=== PATIENT | female | born 1965 | race Two or more races ===

== ENCOUNTER 2019-08-01 11:44 | Outpatient (CLI) | payer OTHER ==
[~2019-08-01 11:44] MED LIST: CRESTOR10 MG; INDAPAMIDE1.25 MG
== END 2019-08-01 11:46 | disposition home or self-care (01) ==
LOC: MAMO-SONO 11:44
PROVIDERS: ATTEND Obstetrics & Gynecology
DX: Z12.31 Encounter for screening mammogram for malignant neoplasm of breast (principal); N60.11 Diffuse cystic mastopathy of right breast; N60.12 Diffuse cystic mastopathy of left breast

== ENCOUNTER 2022-03-23 10:50 | Emergency (ER) | payer OTHER ==
[~2022-03-23] VITALS: Ht 170.2 cm; Wt 78.0 kg
[2022-03-23] MEDS ORDERED: ZITHROMAX500 MG PO (14:34)
[2022-03-23] MEDS ORDERED: KETO10TA2 PO (14:35)
== END 2022-03-23 14:47 | disposition home or self-care (01) ==
LOC: ER 10:50
DX: H92.01 Otalgia, right ear (principal); B34.9 Viral infection, unspecified; I10 Essential (primary) hypertension; Z20.822 Contact with and (suspected) exposure to COVID-19